=== PATIENT | female | born 1955 | race Caucasian/White ===

== ENCOUNTER 2018-03-19 12:15 | Emergency (ER) | payer OTHER ==
[~2018-03-19] VITALS: Ht 157.5 cm; Wt 110.9 kg
[~2018-03-19 12:15] MED LIST: ULTRAM50 MG PO
[2018-03-19 14:29] VITALS: BP 130/74
== END 2018-03-19 14:58 | disposition home or self-care (01) ==
LOC: EME 12:15
PROC: 0JQJ0ZZ Repair Right Hand Subcutaneous Tissue and Fascia, Open Approach (ICD-10-PCS; principal; 2018-03-19)
DX: S61.212A Laceration without foreign body of right middle finger without damage to nail, initial encounter (principal); W25.XXXA Contact with sharp glass, initial encounter; Z88.6 Allergy status to analgesic agent
CPT/HCPCS: 99281; 99284; S0020